=== PATIENT | female | born 1955 | race Caucasian/White ===

== ENCOUNTER 2016-12-04 21:54 | Observation (INO) | payer MEDICARE, OTHER ==
[2016-12-04] MEDS ORDERED: Albuterol/Ipratropium NEB.SOL* Albuterol 2.5 MG/Ipratropium 0.5 MG 3 ML ONE (21:58)
[2016-12-04] MEDS: Albuterol/Ipratropium NEB.SOL* Albuterol 2.5 MG/Ipratropium 0.5 MG 3 ML INH SCH ×2 (22:02→22:03)
[2016-12-04 22:18] LABS: Hematocrit 37 % (35-47); Hemoglobin 12.1 g/dl (12.0-16.0); Mean Corpuscular HGB Conc 33 g/dl (31-36); Mean Corpuscular Hemoglobin 30 pg (27-31); Mean Corpuscular Volume 89 fL (80-97); Mean Platelet Volume 9 um3 (7.4-10.4); Red Blood Count 4.09 10^6/ul (4.0-5.4); Red Cell Distribution Width 13 % (10.5-15); White Blood Count 6.5 10^3/ul (3.5-10.8)
[2016-12-04 22:36] LABS: Albumin 3.8 g/dL (3.2-5.2); Calcium 8.9 mg/dL (8.6-10.3); EGFR African American 161.9 (>60); EGFR Non-African American 125.9 (>60); Globulin 2.7 g/dL (2-4); Total Bilirubin 0.5 mg/dL (0.2-1.0); Total Protein 6.5 g/dL (6.4-8.9)
--- NOTE | 2016-12-04 22:43 | RAD ---
Indication: Shortness of breath. 2 views of the chest are reviewed and compared to previous exam dated November 01, 2016. No mediastinal shift is noted. Patchy areas of airspace disease in the left upper lobe, left base and right lung base are present. IMPRESSION: Bibasilar airspace disease which may represent pneumonia.
[2016-12-04] MEDS ORDERED: Levofloxacin 750 MG IVPREMIX(* 750 MG/150 ML BAG IVPB ONE (23:55)
--- NOTE | 2016-12-04 23:55 | ED ---
Sosa Lau Janilya, scribed for Reynaldo Mtz MD on 12/04/16 at 2200 . Shortness of Breath - HPI Summary HPI Summary: A 61 y/o female was BIBA to [facility] presenting w/ a gradual onset of constant SOB for about a few months. Per EMS, the pt has been having respiratory problems for a long time. however, today the dyspnea significantly worsened, hence her call to EMS. Pt used Albuterol at home, although it was . PMHx bronchitis. Pt has been treated for it 3 times in the past. - History of Current Complaint Hx Obtained From: Patient, EMS Onset/Duration: Gradual Onset, Lasting Weeks, Worse Since - today Current Severity: Moderate Aggrevating Factors: Nothing Alleviating Factors: Nothing Associated Signs & Symptoms: Wheezing - Allergy/Home Medications Allergies/Adverse Reactions: Allergies Allergy/AdvReac Type Severity Reaction Status Date / Time Carbamazepine [From Tegretol] Allergy Severe See Comment Verified 06/17/15 13:33 Clonidine [From Catapres-TTS] Allergy Tachycardia Verified 11/09/16 14:51 Gabapentin [From Neurontin] Allergy See Comment Verified 11/09/16 14:51 Latex Allergy Rash Verified 11/09/16 14:51 Methadone Allergy Fatigue Verified 11/09/16 14:51 Sulfamethoxazole Allergy See Comment Verified 11/09/16 14:51 w/Trimethoprim [From Bactrim] PMH/Surg Hx/FS Hx/Imm Hx Previously Healthy: Yes Cardiovascular History: Reports: Hx Hypertension - CURRENTLY ON MEDICATION Respiratory History: Reports: Hx Chronic Bronchitis - Surgical History Surgery Procedure, Year, and Place: TONSILECTOMY, THDSO, 5 CSPINE , 1TSPINE - Family History Known Family History: Positive: Cardiac Disease, Hypertension Negative: Diabetes - Social History Occupation: Retired Alcohol Use: None Substance Use Type: Reports: None Hx Tobacco Use: Yes Type: Cigarettes Amount Used/How Often: 2/day Length of Time of Smoking/Using Tobacco: 35 yrs Have You Smoked in the Last Year: Yes Review of Systems Negative: Fever Respiratory: Other - wheezing Positive: Shortness Of Breath All Other Systems Reviewed And Are Negative: Yes Physical Exam Triage Information Reviewed: Yes Vital Signs On Initial Exam: Initial Vitals Pulse Pulse Ox 77 95 12/04/16 22:04 12/04/16 22:04 Vital Signs Reviewed: Yes Appearance: Positive: Ill-Appearing - mod sob, Thin Skin: Positive: Warm Eyes: Positive: JAY ENT: Positive: Hearing grossly normal Neck: Positive: Supple Respiratory/Lung Sounds: Positive: Decreased Breath Sounds, Rhonchi, Wheezes Cardiovascular: Positive: Normal Abdomen Description: Positive: Nontender, Soft Bowel Sounds: Positive: Present Musculoskeletal: Positive: Strength/ROM Intact Neurological: Positive: Alert, Oriented to Person Place, Time Diagnostics - Vital Signs Vital Signs Temp Pulse Resp BP Pulse Ox 12/04/16 22:13 99.8 F 78 12 139/56 95 12/04/16 22:04 77 95 - Laboratory Lab Results: Lab Results 12/04/16 12/04/16 12/04/16 Range/Units 22:10 22:10 22:10 WBC 6.5 (3.5-10.8) 10^3/ul RBC 4.09 (4.0-5.4) 10^6/ul Hgb 12.1 (12.0-16.0) g/dl Hct 37 (35-47) % MCV 89 (80-97) fL MCH 30 (27-31) pg MCHC 33 (31-36) g/dl RDW 13 (10.5-15) % Plt Count 152 (150-450) 10^3/ul MPV 9 (7.4-10.4) um3 Neut % (Auto) 66.5 (38-83) % Lymph % (Auto) 22.3 L (25-47) % [place] % (Auto) 9.9 H (1-9) % Eos % (Auto) 0.8 (0-6) % Baso % (Auto) 0.5 (0-2) % Absolute Neuts (auto) 4.3 (1.5-7.7) 10^3/ul Absolute Lymphs (auto) 1.4 (1.0-4.8) 10^3/ul Absolute Monos (auto) 0.6 (0-0.8) 10^3/ul Absolute Eos (auto) 0.1 (0-0.6) 10^3/ul Absolute Basos (auto) 0 (0-0.2) 10^3/ul Absolute Nucleated RBC 0 10^3/ul Nucleated RBC % 0.1 Sodium 133 (133-145) mmol/L Potassium 4.0 (3.5-5.0) mmol/L Chloride 97 L (101-111) mmol/L Carbon Dioxide 29 (22-32) mmol/L Anion Gap 7 (2-11) mmol/L BUN 7 (6-24) mg/dL Creatinine 0.50 L (0.51-0.95) mg/dL Est GFR ( Amer) 161.9 (>60) Est GFR (Non-Af Amer) 125.9 (>60) BUN/Creatinine Ratio 14.0 (8-20) Glucose 99 (70-100) mg/dL Lactic Acid 1.6 (0.5-2.0) mmol/L Calcium 8.9 (8.6-10.3) mg/dL Total Bilirubin 0.50 (0.2-1.0) mg/dL AST 22 (13-39) U/L ALT 17 (7-52) U/L Alkaline Phosphatase 57 (34-104) U/L Total Protein 6.5 (6.4-8.9) g/dL Albumin 3.8 (3.2-5.2) g/dL Globulin 2.7 (2-4) g/dL Albumin/Globulin Ratio 1.4 (1-3) Result Diagrams: 12/04/16 22:10 12/04/16 22:10 Lab Statement: Any lab studies that have been ordered have been reviewed, and results considered in the medical decision making process. - Radiology CXR Xray Interpretation: Positive (See Comments) - IMPRESSION: Bibasilar airspace disease which may represent pneumonia. Radiology Interpretation Completed By: Radiologist Re-Evaluation - Re-Evaluation First Eval Change: Improved - mildly improved, still sob, pneumonia Course/Dx - Diagnoses Provider Diagnoses: COPD with exacerbation, Pneumonia - Physician Notifications Discussed Care of Patient With: Dr. Duran (hospitalist) at 2350: agrees to admit pt. Instructed by Provider To: Admit As Inpatient - Critical Care Time Critical Care Time: 30-74 min Discharge - Discharge Plan Condition: Fair Disposition: ADMITTED TO [facility] documentation as recorded by the Sosa mcgee Janilya accurately reflects the service I personally performed and the decisions made by me, Reynaldo Mtz MD.
[2016-12-05] MEDS ORDERED: Albuterol/Ipratropium NEB.SOL* Albuterol 2.5 MG/Ipratropium 0.5 MG 3 ML INH PRN (01:12)
[2016-12-05] MEDS ORDERED: Acetaminophen SUPP* 650 MG SUPP PR PRN (01:12)
[2016-12-05] MEDS: methylPREDNISolone SOD 40 MG* 1 ML VIAL IV SCH ×3 (02:22→17:09)
[2016-12-05] MEDS ORDERED: Acetaminophen TAB* 325 MG PO PRN (03:16)
[2016-12-05] MEDS: Heparin VIAL(*) 5000 UNITS/ML VIAL (FIVE THOUSAND) SUBCUT SCH ×3 (06:03→22:38)
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
[2016-12-05] MEDS ORDERED: Morphine ORAL CONCENTRATE* 200 MG/10 ML UDC PO PRN (11:14)
[2016-12-05] MEDS: ESTRADIOL 0.5 MG PO SCH (11:57)
[2016-12-05] MEDS: CMCS:FluvoxaMINE (NF) 50 MG TAB PO SCH ×2 (12:05→22:29)
[2016-12-05] MEDS: [UNRECOGNIZED DRUG - OTHER] PO SCH ×2 (12:05→15:53)
[2016-12-05] MEDS ORDERED: Albuterol HFA INHALER* 8 gm MDI INH PRN (12:18)
[2016-12-05] MEDS ORDERED: Amphetamine MIXED SALT TAB* 10 MG TAB PO PRN (13:00)
[2016-12-05] MEDS ORDERED: OXYCODONE HCL 60 MG PO SCH (13:00)
[2016-12-05] MEDS: Baclofen TAB* 10 MG PO SCH ×2 (13:07→22:30)
[2016-12-05] MEDS: Thyroid TAB* 15 MG PO SCH (13:49)
[2016-12-05] MEDS: lamoTRIgine TAB(*) 100 MG PO SCH ×2 (13:50→22:30)
[2016-12-05] MEDS: oxyCODONE TAB* 5 MG TAB PO PRN (15:51)
[2016-12-05] MEDS ORDERED: METHYLNALTREXONE 12 MG/0.6 ML SUBCUT PRN (18:27)
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
[2016-12-05] MEDS ORDERED: Senna TAB PO PRN (20:59)
[2016-12-05] MEDS ORDERED: Docusate CAP* 100 MG PO PRN (20:59)
[2016-12-05] MEDS ORDERED: Zolpidem TAB* 10 MG PO PRN (21:00)
[2016-12-06] MEDS ORDERED: oxyCODONE TAB* 5 MG TAB ONE (03:34)
[2016-12-06] MEDS: oxyCODONE TAB* 5 MG TAB PO PRN ×2 (03:35→11:38)
[2016-12-06] MEDS: Heparin VIAL(*) 5000 UNITS/ML VIAL (FIVE THOUSAND) SUBCUT SCH ×2 (06:23→13:39)
[2016-12-06] MEDS: Thyroid TAB* 15 MG PO SCH (06:54)
[2016-12-06 06:57] LABS: Hematocrit 37 % (35-47); Hemoglobin 12.4 g/dl (12.0-16.0); Mean Corpuscular HGB Conc 34 g/dl (31-36); Mean Corpuscular Hemoglobin 30 pg (27-31); Mean Corpuscular Volume 88 fL (80-97); Mean Platelet Volume 9 um3 (7.4-10.4); Red Blood Count 4.19 10^6/ul (4.0-5.4); Red Cell Distribution Width 13 % (10.5-15); White Blood Count 13.8 10^3/ul (3.5-10.8)
[2016-12-06] MEDS ORDERED: predniSONE TAB* 20 MG PO SCH (08:30)
[2016-12-06] MEDS ORDERED: VITAMIN A 10000 UNIT PO SCH (09:00)
[2016-12-06] MEDS ORDERED: Metoprolol Succinate XL TAB* 100 MG PO SCH (09:00)
[2016-12-06] MEDS ORDERED: Polyethylene Glycol 3350* 17 GM PACKET PO SCH (09:00)
[2016-12-06] MEDS ORDERED: Levofloxacin TAB* 750 MG PO SCH (09:00)
[2016-12-06] MEDS ORDERED: Aspirin EC Low Dose* 81 MG TAB.EC PO SCH (09:00)
[2016-12-06] MEDS ORDERED: Morphine ORAL CONCENTRATE* 200 MG/10 ML UDC PO PRN (09:05)
[2016-12-06] MEDS: lamoTRIgine TAB(*) 100 MG PO SCH (10:47)
[2016-12-06] MEDS: Baclofen TAB* 10 MG PO SCH ×2 (10:48→13:38)
[2016-12-06] MEDS: CMCS:FluvoxaMINE (NF) 50 MG TAB PO SCH (10:48)
[2016-12-06] MEDS: ESTRADIOL 0.5 MG PO SCH (10:48)
[2016-12-06] MEDS: [UNRECOGNIZED DRUG - OTHER] PO SCH ×4 (11:06→18:18)
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
[2016-12-06 18:19] VITALS: BP 142/70
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
== END 2016-12-06 19:30 | disposition home or self-care (01) ==
LOC: ED 21:54 → MEDTELE 12-05 01:24 → MED 12-05 15:08
PROVIDERS: ADMIT Internal Medicine; ATTEND Internal Medicine
DX: J44.1 Chronic obstructive pulmonary disease with (acute) exacerbation (principal); F39 Unspecified mood [affective] disorder; E03.9 Hypothyroidism, unspecified; R06.02 Shortness of breath; G89.29 Other chronic pain; I10 Essential (primary) hypertension; Z79.899 Other long term (current) drug therapy; F17.210 Nicotine dependence, cigarettes, uncomplicated
CPT/HCPCS: 36415; 71020; 80053; 83605; 84145; 85025; 87040; 87070; 87205; 87641; 87899; 94640; 94760; 96365; 96372; 96375; 99283; 99406; A9270-GY; G0378; J1644; J2920; J7512

== ENCOUNTER 2018-06-10 21:56 | Emergency (ER) | payer MEDICARE, OTHER ==
[2018-06-10] MEDS ORDERED: NS 0.9% 1000 ML* 1,000 ML IV ONE (22:24)
[2018-06-10] MEDS ORDERED: Morphine INJ** 4 MG/ML 1 ML CARPUJECT IV ONE (22:26)
[2018-06-10] MEDS ORDERED: Metoclopramide IV* 5 MG/ML 2 ML VIAL IV SLOW PU ONE (22:27)
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
[2018-06-10] MEDS ORDERED: Morphine INJ* 2 MG/ML 1 ML SYRINGE (TWO MG - NEW SYRINGE VERSION) ONE ×2 (22:41→22:44)
[2018-06-10 22:48] LABS: ABS Basophils 0.1 10^3/ul (0-0.2); ABS Eosinophils 0.1 10^3/ul (0-0.6); ABS Lymphocytes 2.2 10^3/ul (1.0-4.8); ABS Monocytes 0.5 10^3/ul (0-0.8); ABS Neutrophils 4.4 10^3/ul (1.5-7.7); ABS Nucleated RBC 0 10^3/ul; Hematocrit 35 % (35-47); Lymphocyte % 30.4 % (25-47); Mean Corpuscular HGB Conc 34 g/dl (31-36); Mean Corpuscular Hemoglobin 32 pg (27-31); Mean Corpuscular Volume 92 fL (80-97); Mean Platelet Volume 8.1 um3 (7.4-10.4); Nucleated Red Blood Cells % 0; Platelet Count 204 10^3/ul (150-450); Red Blood Count 3.82 10^6/ul (4.00-5.40); Red Cell Distribution Width 13 % (10.5-15); White Blood Count 7.3 10^3/ul (3.5-10.8)
[2018-06-10] MEDS ORDERED: Morphine INJ* 2 MG/ML 1 ML SYRINGE (TWO MG - NEW SYRINGE VERSION) IV ONE (22:54)
[2018-06-10 22:58] LABS: EGFR Non-African American 97.5 (>60)
[2018-06-11 00:18] VITALS: BP 132/74
== END 2018-06-11 00:17 | disposition home or self-care (01) ==
LOC: ED 21:56
DX: M79.2 Neuralgia and neuritis, unspecified (principal); Z88.5 Allergy status to narcotic agent; Z88.2 Allergy status to sulfonamides; Z88.8 Allergy status to other drugs, medicaments and biological substances; Z91.040 Latex allergy status; Z82.49 Family history of ischemic heart disease and other diseases of the circulatory system; F17.210 Nicotine dependence, cigarettes, uncomplicated
CPT/HCPCS: 36415; 80053; 82550; 85025; 86140; 96374; 96375; 99283; J2270; J2765

== ENCOUNTER 2019-11-29 18:31 | Emergency (ER) | payer MEDICARE, OTHER ==
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
[2019-11-29 21:33] VITALS: BP 153/58
== END 2019-11-29 23:35 | disposition left against medical advice (07) ==
LOC: ED 18:31
DX: S22.078A Other fracture of T9-T10 vertebra, initial encounter for closed fracture (principal); S22.088A Other fracture of T11-T12 vertebra, initial encounter for closed fracture; V49.9XXA Car occupant (driver) (passenger) injured in unspecified traffic accident, initial encounter; Y92.410 Unspecified street and highway as the place of occurrence of the external cause; I10 Essential (primary) hypertension; J45.909 Unspecified asthma, uncomplicated; F17.210 Nicotine dependence, cigarettes, uncomplicated; Z90.721 Acquired absence of ovaries, unilateral; Z88.5 Allergy status to narcotic agent; Z88.2 Allergy status to sulfonamides; Z88.8 Allergy status to other drugs, medicaments and biological substances; Z88.1 Allergy status to other antibiotic agents; Z91.040 Latex allergy status
CPT/HCPCS: 70450; 72125; 72131; 99284

== ENCOUNTER 2019-11-29 23:38 | Inpatient (IN) | payer MEDICARE, OTHER ==
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
[2019-11-30] MEDS ORDERED: Acetaminophen TAB* 325 MG PO PRN (04:19)
[2019-11-30] MEDS ORDERED: oxyCODONE TAB* 5 MG TAB PO PRN ×2 (04:20→05:33)
[2019-11-30] MEDS ORDERED: Albuterol 2.5 MG/3 ML NEB.SOL* (0.083%) INH PRN (07:01)
[2019-11-30] MEDS ORDERED: Zolpidem TAB* 10 MG PO PRN (07:03)
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
[2019-11-30] MEDS ORDERED: fentaNYL* 50 MCG/ML 2 ML VIAL (100 MCG VIAL) IV SLOW PU PRN (07:16)
[2019-11-30] MEDS ORDERED: Morphine ORAL CONCENTRATE* 5 MG/0.25 ML ORAL.SYRIN PO PRN (07:43)
[2019-11-30] MEDS ORDERED: Ketorolac INJ* 30 MG/ML 1 ML VIAL IV PUSH PRN (07:47)
[2019-11-30] MEDS ORDERED: oxyCODONE SR TAB(*) 10 MG TAB.SR PO PRN (07:57)
[2019-11-30] MEDS ORDERED: Levothyroxine TAB* 50 MCG TAB PO SCH (08:00)
[2019-11-30] MEDS ORDERED: Metoprolol Succinate XL TAB* 25 MG PO SCH (09:00)
[2019-11-30] MEDS ORDERED: Melatonin 3 MG TAB PO PRN (09:20)
[2019-11-30] MEDS: Morphine ORAL.SOLN 10 mg* 2 MG/ML UDC 5 ml PO PRN ×2 (09:24→13:20)
[2019-11-30] MEDS ORDERED: Amphetamine MIXED SALTS TAB* 15 MG PO PRN (09:25)
[2019-11-30] MEDS: Baclofen TAB* 10 MG PO PRN ×2 (09:26→13:24)
[2019-11-30] MEDS ORDERED: Amphetamine MIXED SALT TAB* 10 MG TAB PO PRN (09:26)
[2019-11-30] MEDS ORDERED: Albuterol HFA INHALER* 8 gm MDI INH PRN (09:28)
[2019-11-30] MEDS ORDERED: methylPREDNISolone TAB* 4 MG PO SCH (09:30)
[2019-11-30] MEDS ORDERED: Ibuprofen TAB* 600 MG PO PRN (09:51)
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
[2019-11-30] MEDS ORDERED: Famotidine TAB* 20 MG PO SCH (10:00)
[2019-11-30] MEDS ORDERED: lamoTRIgine TAB(*) 100 MG PO SCH (10:00)
[2019-11-30] MEDS ORDERED: CMCS: Estradiol TAB(NF) 1 MG TAB PO SCH (10:00)
[2019-11-30 10:07] VITALS: BP 162/70
[2019-11-30] MEDS ORDERED: hydrALAZINE IV* 20 MG/ML VIAL IV SLOW PU PRN (10:30)
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
[2019-11-30 11:08] LABS: Hematocrit 37 % (35-47); Hemoglobin 11.8 g/dL (12.0-16.0); Mean Corpuscular HGB Conc 32 g/dL (31-36); Mean Corpuscular Hemoglobin 31 pg (27-31); Mean Corpuscular Volume 96 fL (80-97); Red Blood Count 3.86 10^6 /uL (3.70-4.87); Red Cell Distribution Width 13 % (10-15); White Blood Count 8.5 10^3/uL (3.5-10.8)
[2019-11-30 11:25] LABS: Albumin 3.6 g/dL (3.2-5.2); CO2 Carbon Dioxide 23 mmol/L (22-32); Calcium 8.5 mg/dL (8.6-10.3); Chloride 101 mmol/L (101-111); Sodium 132 mmol/L (135-145)
[2019-11-30 11:26] LABS: ABS Eosinophils 0.1 10^3/ul (0-0.6); ABS Lymphocytes 1.4 10^3/ul (1.0-4.8); ABS Monocytes 0.6 10^3/ul (0-0.8); ABS Neutrophils 6.4 10^3/ul (1.5-7.7); Eosinophil % 1.1 %; Lymphocyte % 16.1 %; Mean Platelet Volume 8.7 fL (7.4-10.4); Nucleated Red Blood Cells % 0.1; Platelet Count 44 10^3/uL (150-450)
[2019-11-30 11:31] LABS: ALT 31 U/L (7-52); Albumin/Globulin Ratio 1.4 (1-3); Alkaline Phosphatase 65 U/L (34-104); BUN/Creatinine Ratio 17.9 (8-20); Blood Urea Nitrogen 10 mg/dL (6-24); EGFR African American 132.3 (>60); EGFR Non-African American 109.3 (>60); Globulin 2.5 g/dL (2-4); Glucose 124 mg/dL (70-100); Total Protein 6.1 g/dL (6.4-8.9)
[2019-11-30 11:37] LABS: Anion Gap 8 mmol/L (2-11)
[2019-11-30] MEDS ORDERED: Heparin VIAL(*) 5000 UNITS/ML VIAL (FIVE THOUSAND) SUBCUT SCH (14:00)
[2019-11-30] MEDS ORDERED: MORPHINE PO PRN (16:20)
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
[2019-12-01] MEDS ORDERED: Thyroid TAB* 30 MG PO SCH (09:00)
== END 2019-11-30 16:45 | disposition left against medical advice (07) | DRG 543 ==
LOC: ED 23:38 → MED 11-30 00:57
PROVIDERS: ADMIT Student in an Organized Health Care Education/Training Program; ATTEND Internal Medicine
DX: M48.55XA Collapsed vertebra, not elsewhere classified, thoracolumbar region, initial encounter for fracture (principal); E27.40 Unspecified adrenocortical insufficiency; I10 Essential (primary) hypertension; F17.210 Nicotine dependence, cigarettes, uncomplicated; G89.29 Other chronic pain; J44.9 Chronic obstructive pulmonary disease, unspecified; M54.9 Dorsalgia, unspecified; K21.9 Gastro-esophageal reflux disease without esophagitis; M48.56XA Collapsed vertebra, not elsewhere classified, lumbar region, initial encounter for fracture; E03.9 Hypothyroidism, unspecified; Z88.8 Allergy status to other drugs, medicaments and biological substances; Z88.2 Allergy status to sulfonamides; Z90.5 Acquired absence of kidney; Z86.73 Personal history of transient ischemic attack (TIA), and cerebral infarction without residual deficits; Z79.890 Hormone replacement therapy; Z79.52 Long term (current) use of systemic steroids
CPT/HCPCS: 36415; 71045; 71110; 71120; 72128; 72141; 72146; 72148; 80053; 85025; 85060; 99283; A9270-GY; J1885; J7509